=== PATIENT | male | born 2000 | race Caucasian/White ===

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

== ENCOUNTER → 2022-02-10 | Outpatient (REF) | payer OTHER | LOC: M SFHCCLAY 10:50 | PROVIDERS: ATTEND Family Medicine | DX: Z13.0 Encounter for screening for diseases of the blood and blood-forming organs and certain disorders involving the immune mechanism (principal) ==

== ENCOUNTER → 2023-02-11 | Outpatient (REF) | payer OTHER | LOC: M SFHCCLAY 08:30 | PROVIDERS: ATTEND Family Medicine | DX: Z00.00 Encounter for general adult medical examination without abnormal findings (principal) ==

== ENCOUNTER 2023-05-24 21:39 | Emergency (ER) | payer OTHER ==
[~2023-05-24] VITALS: Ht 182.9 cm; Wt 87.4 kg
[2023-05-24] MEDS ORDERED: ACETAMINOPHEN TAB 650MG DOSE (2X325MG) PO ONE (22:50)
[2023-05-24] MEDS ORDERED: dexAMETHasone 20MG/5ML VIAL IV ONE (22:50)
[2023-05-24] MEDS ORDERED: CEPHALEXIN SUSP POWDER 250MG/5ML BTL 100ML PO ONE (23:40)
[2023-05-24] MEDS ORDERED: CEPH500C PO (23:40)
[2023-05-24] MEDS ORDERED: DEXA6TAB PO (23:42)
[2023-05-24 23:43] LABS: HEMATOCRIT 40.7 % (42.0-52.0); HEMOGLOBIN 13.7 g/dl (13.5-17.5); MEAN CORPUSCULAR HEMOGLOBIN 29.1 pg (27.0-33.0); MEAN CORPUSCULAR HGB CONC 33.7 g/dl (32.0-36.5); MEAN CORPUSCULAR VOLUME 86.6 fl (80.0-96.0); PLATELET COUNT, AUTOMATED 241 10^3/uL (150-450); WHITE BLOOD COUNT 16.1 10^3/uL (4.0-10.0)
[2023-05-24 23:55] LABS: MONO SCRN POSITIVE (NEGATIVE)
[2023-05-25] VITALS: BP 128/73; TEMP 100.7; O2SAT 97
[2023-05-25 00:42] LABS: ATYPICAL LYMPH 34 % (0-5); BASOPHILS 1 % (0-1); EOSINOPHILS 1 % (0-3); LYMPHOCYTES 12 % (16-44); MONOCYTES 5 % (0-5); NEUTROPHILS 47 % (28-66); PLATELET ESTIMATE NORMAL (NORMAL)
== END 2023-05-25 00:14 | disposition home or self-care (01) ==
LOC: M ED 21:39
DX: B27.90 Infectious mononucleosis, unspecified without complication (principal); J02.0 Streptococcal pharyngitis; Z88.1 Allergy status to other antibiotic agents
CPT/HCPCS: 85025; 86308; 96374; 99284; J1100